=== PATIENT | female | born 1950 | race Caucasian/White ===

== ENCOUNTER 2017-12-03 21:44 | Emergency (ER) | payer MEDICARE, BC ==
[2017-12-03] MEDS ORDERED: AMPICILLIN SODIUM/SULBACTAM NA 3 G in 0.9 % SODIUM CHLORIDE 100ML 100 ML IVPB ONE (22:25)
--- NOTE | 2017-12-03 22:28 | Emergency Department Record ---
History of Present Illness - General Chief Complaint: Animal Bite Stated Complaint: DOG BITE LT HAND Time Seen by Provider: 12/03/17 22:24 Source: Patient Mode of Arrival: Ambulatory Limitations: No limitations - History of Present Illness Initial Comments: 67 yo female presents to ED for evaluation of a dog-bite to the left hand that occurred approximately 48 hours ago. Patient reports that her swelling and erythema have increased over the past 48 hours. Patient denies fevers, chills, or recent illness. Patient denies history of DM. MD Complaint: Animal bite Onset/Timin -: Hour(s) Left: Hand Animal: Dog Description: Household pet Mechanism: Bite Pain Description: Sharp Context: Unprovoked Associated Symptoms: None - Related Data Home Medications Medication Instructions Recorded Confirmed Last Taken Amoxicillin/Potassium Clav 1 each PO TID 12/03/17 12/03/17 Unknown [Augmentin 500-125 Tablet] Aspirin 81 mg PO DAILY 12/03/17 12/03/17 Unknown Atorvastatin Calcium 10 mg PO DAILY 12/03/17 12/03/17 Unknown Lisinopril [Zestril] 10 mg PO DAILY 12/03/17 12/03/17 Unknown Lorazepam [Ativan] 0.5 mg PO ASDIR 12/03/17 12/03/17 Unknown Multivitamin [Daily Multiple 1 each PO DAILY 12/03/17 12/03/17 Unknown Vitamin] Franklin-3 Fatty Acids [Franklin-3] 1 tab PO DAILY 12/03/17 12/03/17 Unknown Trazodone HCl 50 mg PO ASDIR PRN 12/03/17 12/03/17 Unknown Triamterene/Hydrochlorothiazid 1 each PO DAILY 12/03/17 12/03/17 Unknown [Maxzide 37.5 mg-25 mg Tablet] Allergies Allergy/AdvReac Type Severity Reaction Status Date / Time Sulfa (Sulfonamide Allergy RASH Verified 12/03/17 21:53 Antibiotics) Review of Systems Constitutional: Denies: Chills, Fever, Malaise, Night sweats Eyes: Denies: Eye discharge, Eye pain ENT: Denies: Congestion, Ear pain, Epistaxis Respiratory: Denies: Cough, Dyspnea Cardiovascular: Denies: Chest pain, Dyspnea on exertion Endocrine: Denies: Fatigue, Heat or cold intolerance Gastrointestinal: Denies: Abdominal pain, Nausea, Vomiting Genitourinary: Denies: Incontinence, Retention Musculoskeletal: Reports: Myalgia. Denies: Arthralgia, Back pain, Gout, Other Skin: Reports: Change in color, Rash. Denies: Bruising Neurological: Denies: Abnormal gait, Confusion, Headache, Seizure Psychiatric: Denies: Anxiety Hematological/Lymphatic: Denies: Anemia, Blood Clots Physical Exam - General General Appearance: Alert, Oriented x3, Cooperative, Moderate distress Limitations: No limitations - Head Head exam: Atraumatic, Normocephalic, Normal inspection Head exam detail: negative: Abrasion, Contusion, Carter's sign, General tenderness, Hematoma, Laceration - Eye Eye exam: Normal appearance. negative: Conjunctival injection, Periorbital swelling, Periorbital tenderness, Scleral icterus - ENT Ear exam: negative: Auricular hematoma, Auricular trauma Nasal Exam: negative: Active bleeding, Discharge, Dried blood, Foreign body Mouth exam: negative: Drooling, Laceration, Muffled voice, Tongue elevation - Neck Neck exam: Normal inspection. negative: Meningismus, Tenderness - Respiratory Respiratory exam: Normal lung sounds bilaterally. negative: Rales, Respiratory distress, Rhonchi, Stridor - Cardiovascular Cardiovascular Exam: Regular rate, Normal rhythm, Normal heart sounds Peripheral Pulses: 3+: Radial (L) - GI/Abdominal GI/Abdominal exam: Soft. negative: Rebound, Rigid, Tenderness - Rectal Rectal exam: Deferred - exam: Deferred - Extremities Extremities exam: Tenderness, Other (STS to the dorsum of the left hand, erythema extends to the mid-forearm dorsally.). negative: Calf tenderness, Pedal edema - Back Back exam: Denies: CVA tenderness (R), CVA tenderness (L) - Neurological Neurological exam: Alert, Normal gait, Oriented X3 - Psychiatric Psychiatric exam: Normal affect, Normal mood - Skin Skin exam: Erythema Type of lesion: negative: abrasion Course - Reevaluation(s) Reevaluation #1: 12/03/17 23:16 Labs were reviewed, CRP 8.6, ESR pending. Labs are otherwise grossly unremarkable for an acute process. Reevaluation #2: 12/03/17 23:26 Case was discussed with Dr. Lane, will accept patient for admission. Medical Decision Making - Lab Data Result diagrams: 12/03/17 22:30 05/27/18 22:30 Disposition Disposition: Transfer Clinical Impression: Cellulitis of left hand Disposition: Acute Care Hospital Transfer Transfer To: [facility] Reason For Transfer: Inpatient treatment for cellulitis, hand consultation Accepting Physician: Domingo Time Discussed w/Accepting Physician: 23:26 Condition: (2) Stable Forms: Patient Portal Access Time of Disposition: 23:26 Quality - Quality Measures Quality Measures: N/A - Blood Pressure Screening Does Patient Have Any of the Following: No Blood Pressure Classification: Pre-Hypertensive BP Reading Systolic Measurement: 137 Diastolic Measurement: 70 Screening for High Blood Pressure: < Pre-Hypertensive BP, F/U Documented > [ [id number]] Pre-Hypertensive Follow-up Interventions: Referral to alternative/primary care provider.
[2017-12-03 22:41] LABS: BASO % 0.3 % (0-6); GRAN % 64.5 % (47-80); HEMATOCRIT 43.7 % (35.0-47.0); HEMOGLOBIN 14.7 gm/dl (11.6-16.0); LYMPH % 27.3 % (16-45); MEAN CELL VOLUME 88.8 fl (81-97); MEAN CORPUSCULAR HEMOGLOBIN 29.9 pg (27-33); MEAN CORPUSCULAR HGB CONC 33.6 g/dl (32-36); MEAN PLATELET VOLUME 9.6 fl (7.4-10.4); MONO % 6.9 % (0-9); PLATELET COUNT 234 K/uL (130-400); RED BLOOD COUNT 4.92 M/uL (3.80-5.40); RED CELL DISTRIBUTION WIDTH 13.1 % (11.5-14.5); WHITE BLOOD COUNT W/O DIFF 9.8 K/uL (4.2-12.2)
[2017-12-03 22:59] LABS: TOTAL PROTEIN 7.8 g/dL (6.6-8.7)
[2017-12-03 23:03] LABS: ALB/GLOB RATIO 1.4 (1.1-1.8); ALBUMIN 4.6 g/dL (4.0-5.0)
[2017-12-03 23:04] LABS: C-REACTIVE PROTEIN 8.61 mg/dL (<0.5)
[2017-12-03 23:42] LABS: ERYTHROCYTE SEDIMENTATION RATE 41 mm/hr (0-30)
== END 2017-12-03 23:39 | disposition short-term general hospital (02) ==
LOC: ER 21:44
DX: S61.452A Open bite of left hand, initial encounter (principal); L03.114 Cellulitis of left upper limb; W54.0XXA Bitten by dog, initial encounter; Y92.009 Unspecified place in unspecified non-institutional (private) residence as the place of occurrence of the external cause
CPT/HCPCS: 99284 ×2; 96365; 85025; 85651; 86140; 80053; J0295